=== PATIENT | female | born 1995 | race Two or more races ===

== ENCOUNTER 2023-01-21 19:48 | Emergency (ER) | payer OTHER, MEDICAID ==
[~2023-01-21] VITALS: Ht 160 cm; Wt 54.5 kg
[2023-01-21 22:00] LABS: Urine Bacteria NONE SEEN /hpf (None Seen); Urine Blood Negative /uL (Negative); Urine Specific Gravity 1.018 (1.001-1.035); Urine WBC <1 /hpf (0 - 5)
[2023-01-22] MEDS ORDERED: IBUP800T27 PO
[2023-01-22 01:15] VITALS: BP 121/77
== END 2023-01-22 01:37 | disposition home or self-care (01) ==
LOC: ER 19:52
DX: N64.4 Mastodynia (principal); M79.10 Myalgia, unspecified site; R07.89 Other chest pain; Z88.1 Allergy status to other antibiotic agents
CPT/HCPCS: 71250; 81001; 81025

== ENCOUNTER 2023-10-18 14:22 | Emergency (ER) | payer OTHER, MEDICAID ==
[~2023-10-18] VITALS: Ht 165.1 cm; Wt 67.2 kg
[~2023-10-18 14:22] MED LIST: IBUP-1456 PO
[2023-10-18] MEDS ORDERED: ACETAMINOPHEN 500 MG TAB PO ONE (14:30)
[2023-10-18] MEDS ORDERED: SODIUM CHLORIDE 0.9% 1,000 ML IV ONE (14:30)
[2023-10-18 15:39] LABS: Basophils # (auto) 0 10 ^3/uL (0-0.2); Basophils % (auto) 0.1 % (0.0-2.0); Eosinophils # (auto) 0 10 ^3/uL (0-0.8); Hematocrit 40.5 % (36.0-46.0); Lymphocytes # (auto) 0.3 10 ^3/uL (0.4-5.4); Lymphocytes % (auto) 4.2 % (10.0-50.0); Mean Corpuscular Hemoglobin 30.5 pg (28.0-32.0); Mean Corpuscular Hgb Conc. 34.4 g/dL (32.0-36.0); Mean Corpuscular Volume 88.7 fL (80.0-100.0); Monocytes # (auto) 0.4 10 ^3/uL (0-1.3); Monocytes % (auto) 6.6 % (0.0-12.0); Neutrophils # (auto) 5.6 10 ^3/uL (1.6-8.6); Neutrophils % (auto) 89.1 % (37.0-80.0); Red Blood Cells 4.57 10^6/uL (4.0-5.20); Red Cell Distribution Width 13.1 % (11.8-14.3); White Blood Cell 6.3 10^3/uL (4.4-10.8)
[2023-10-18 16:08] LABS: Urine Bacteria FEW /hpf (None Seen); Urine Blood Negative /uL (Negative); Urine Clarity Clear (Clear); Urine Color Colorless (Yellow); Urine Mucus FEW (None Seen); Urine Protein, UAD Negative (Negative); Urine Specific Gravity 1.014 (1.001-1.035); Urine Urobilinogen Normal (Negative); Urine WBC 1 /hpf (0 - 5); Urine pH 5.5 (5.0-8.0)
[2023-10-18 16:20] LABS: Alanine Aminotransferase 14 U/L (7-40); Albumin 4.6 g/dL (3.2-4.8); Alkaline Phosphatase 66 U/L (46-116); Anion Gap 12 (5-15); Aspartate Aminotransferase 14 U/L (13-40); Bilirubin, Total 0.8 mg/dL (0.2-1.0); Blood Urea Nitrogen 9 mg/dL (9-23); Calcium 9.3 mg/dL (8.5-10.1); Carbon Dioxide 21 mmol/L (20-30); Chloride 103 mmol/L (98-107); Glucose 97 mg/dL (74-106); Sodium 136 mmol/L (136-145); Total Protein 6.6 g/dL (5.7-8.2)
[2023-10-18 18:20] LABS: Lipase 51 U/L (12-53)
[2023-10-18] MEDS ORDERED: BENZ100C97 PO (18:32)
[2023-10-18] MEDS ORDERED: ACET500T58 PO (18:32)
[2023-10-18] MEDS ORDERED: MECL1TAB42 PO (18:32)
[2023-10-18] MEDS ORDERED: LORA10CA PO (18:32)
[2023-10-18 19:02] VITALS: BP 128/68; PULSE 102; RESP 18; TEMP 98.6; O2SAT 99
[2023-10-18 19:27] LABS: COVID19 ANTIGEN SOFIA FIA NEGATIVE (NEGATIVE); Rapid Influenza A Negative (Negative); Rapid Influenza B Negative (Negative)
== END 2023-10-18 19:05 | disposition home or self-care (01) ==
LOC: EDBD 14:22 → ER 14:22
DX: U07.1 COVID-19 (principal); Z79.1 Long term (current) use of non-steroidal anti-inflammatories (NSAID); Z88.1 Allergy status to other antibiotic agents; Z88.5 Allergy status to narcotic agent; Z88.8 Allergy status to other drugs, medicaments and biological substances; Z91.040 Latex allergy status; Z20.822 Contact with and (suspected) exposure to COVID-19
CPT/HCPCS: 36415; 70450; 71045; 80053; 81001; 81025; 83690; 84484; 85025; 87426; 87804; 93005; 96360; 99285; J7030